=== PATIENT | female | born 1945 | race Caucasian/White ===

== ENCOUNTER 2019-10-28 10:02 | Emergency (ER) | payer MEDICARE ==
--- NOTE | 2019-10-28 10:18 | ER Document Report ---
ED Medical Screen (RME) - General Chief Complaint: Diarrhea Stated Complaint: DIARRHEA Time Seen by Provider: 10/28/19 10:13 Primary Care Provider: MARCY POLLOCK MD [ACTIVE STAFF] - Follow up as needed FÁTIMA MARTÍNEZ MD [ACTIVE STAFF] - Follow up as needed Mode of Arrival: Ambulatory Information source: Patient Notes: 74-year-old female presented to ED for complaint of nausea no vomiting and diarrhea off and on for several months worse in the last week. She states she is having 3-4 stools a day for the last week. States when she was a teenager she had ulcers. She states they did 3 colonoscopies 3 years ago and 3 endoscopies due to ulcers. She states she moved here from [place] and August and she has not got a doctor in this area yet. She states she has been taking her medicines but she needs a doctor so that she can get refills on all of her medicines. She states the only medicine she is out of at this time is her sleeping medicine. States she does have mucus in her stools at this time but no blood. She states she has not been on antibiotics for any reason in over a year. I have greeted and performed a rapid initial assessment of this patient. A comprehensive ED assessment and evaluation of the patient, analysis of test results and completion of medical decision making process will be conducted by an additional ED providers. - Related Data Allergies/Adverse Reactions: codeine Adverse Reaction (Verified 10/28/19 10:14) Nausea Physical Exam - Vital signs Vitals: Temp Pulse Resp BP Pulse Ox 97.9 F 75 16 104/46 L 94 10/28/19 10:07 10/28/19 10:07 10/28/19 10:07 10/28/19 10:07 10/28/19 10:07 Course - Vital Signs Vital signs: Temp Pulse Resp BP Pulse Ox 98.2 F 70 20 136/62 H 95 10/28/19 14:27 10/28/19 14:27 10/28/19 14:27 10/28/19 14:27 10/28/19 14:27 - Laboratory Result Diagrams: 10/28/19 11:00 10/28/19 11:00 Laboratory results interpreted by me: 10/28/19 10/28/19 11:00 11:00 WBC 3.8 L RDW 14.9 H [place] % (Auto) 16.5 H Potassium 3.4 L Chloride 110 H Creatinine 1.38 H Est GFR ( Amer) 45 L Est GFR (MDRD) Non-Af 37 L Total Protein 6.2 L Lipase 17.5 L Doctor's Discharge - Discharge Clinical Impression: Diarrhea Condition: Stable Disposition: HOME, SELF-CARE Instructions: Diarrhea, Nonspecific ([facility]) Additional Instructions: Maintain adequate fluid and food intake Increase fiber/water in diet tylenol if needed Monitor for any worsening symptoms Make sure you are staying hydrated enough to urinate and have normal BM's Recheck with your PCM in 3-5 days Schedule a consult with gastroenterology this week. Return to the ED with any worsening symptoms and/or development of fever, headache, chest pain, palpitations, syncope, shortness of breath, trouble breathing, abdominal pain, n/v/d, blood in stool/urine, weakness, or other worsening symptoms that are concerning to you. Prescriptions: Psyllium Husk 1 gm MC DAILY #3 powder Forms: Follow-Up Laboratory Testing Referrals: MARCY POLLOCK MD [ACTIVE STAFF] - Follow up as needed FÁTIMA MARTÍNEZ MD [ACTIVE STAFF] - Follow up as needed
[2019-10-28] MEDS ORDERED: ONDANSETRON 4 MG TAB.RAPDIS PO ONE (10:19)
[2019-10-28] MEDS ORDERED: NORMAL SALINE 1000 ML 1,000 ML IV ONE ×2 (10:20→12:46)
[2019-10-28 11:38] LABS: ABSOLUTE BASOPHILS # (AUTO) 0.1 10^3/uL (0.0-0.2); ABSOLUTE EOSINOPHILS # (AUTO) 0.2 10^3/uL (0.0-0.6); ABSOLUTE LYMPHOCYTES (AUTO) 1.2 10^3/uL (0.5-4.7); ABSOLUTE MONOCYTES (AUTO) 0.6 10^3/uL (0.1-1.4); ABSOLUTE NEUT (AUTO) 1.7 10^3/uL (1.7-8.2); BASOPHILS % (AUTO) 1.5 % (0-2); EOSINOPHILS % (AUTO) 5.4 % (0-6); HEMATOCRIT 38.8 % (36.0-47.0); HEMOGLOBIN 12.7 g/dL (12.0-15.5); LYMPHOCYTES % (AUTO) 31.5 % (13-45); MEAN CORPUSCULAR HEMOGLOBIN 29.7 pg (27.0-33.4); MEAN CORPUSCULAR HGB CONC 32.7 g/dL (32.0-36.0); MEAN CORPUSCULAR VOLUME 91 fl (80-97); MONOCYTES % (AUTO) 16.5 % (3-13); PLATELET COUNT 208 10^3/uL (150-450); RED BLOOD COUNT 4.27 10^6/uL (3.72-5.28); RED CELL DISTRIBUTION WIDTH 14.9 % (11.5-14.0); SEGMENTED NEUTROPHILS % (AUTO) 45.1 % (42-78); TOTAL CELLS COUNTED % (AUTO) 100 %; WHITE BLOOD COUNT 3.8 10^3/uL (4.0-10.5)
[2019-10-28 11:56] LABS: ALBUMIN 3.7 g/dL (3.5-5.0); ALKALINE PHOSPHATASE 92 U/L (38-126); ANION GAP 10 (5-19); ASPARTATE AMINO TRANSFERASE 17 U/L (14-36); BILIRUBIN,DIRECT 0.1 mg/dL (0.0-0.4); BILIRUBIN,TOTAL 0.6 mg/dL (0.2-1.3); BLOOD UREA NITROGEN 19 mg/dL (7-20); CALCIUM 9.2 mg/dL (8.4-10.2); CARBON DIOXIDE 22 mmol/L (22-30); CHLORIDE 110 mmol/L (98-107); GLUCOSE 93 mg/dL (75-110); POTASSIUM 3.4 mmol/L (3.6-5.0); TOTAL PROTEIN 6.2 g/dL (6.3-8.2)
--- NOTE | 2019-10-28 12:42 | ER Document Report ---
ED General - General Chief Complaint: Nausea Stated Complaint: DIARRHEA Time Seen by Provider: 10/28/19 10:13 Primary Care Provider: MARCY POLLOCK MD [ACTIVE STAFF] - Follow up as needed FÁTIMA MARTÍNEZ MD [ACTIVE STAFF] - Follow up as needed Mode of Arrival: Ambulatory TRAVEL OUTSIDE OF THE [place] IN LAST 30 DAYS: No - HPI Notes: Patient is a 74-year-old female with a history of pacemaker placement as well as chronic recurrent diarrhea who presents complaining of having increased episodes of diarrhea over the past week. Patient states that she has been having 3-4 stools in the day that have been loose and watery. Patient has not noticed any black or tarry stools. She has been able to eat and drink without difficulty otherwise. She is urinating normally. She has a history of appendectomy, but no other surgeries to her abdomen. She has had previous Colonoscopies and endoscopies in the past. She moved here in August and has not established with any providers yet. She has been trying [id number] meds with minimal relief. Her last episode of diarrhea was 430 this morning. No recent antibiotic use, travel to any country, or consuming raw foods. No new medications. Denies any headache, fever, neck pain, URI, sore throat, chest pain, palpitations, syncope, cough, shortness of breath, wheeze, dyspnea, abdominal pain, nausea/vomiting, urinary retention, dysuria, hematuria, or rash. - Related Data Allergies/Adverse Reactions: codeine Adverse Reaction (Verified 10/28/19 10:14) Nausea Past Medical History - General Information source: Patient - Social History Smoking Status: Former Smoker Family History: Reviewed & Not Pertinent Patient has suicidal ideation: No Patient has homicidal ideation: No Past Surgical History: Reports: Hx Appendectomy, Hx Cardiac Surgery - PACEMAKER, Hx Gynecologic Surgery - HYSTERECTOMY, Hx Orthopedic Surgery - BILAT KNEE REPLACEMENT, LEFT SHOULDER Review of Systems - Review of Systems -: Yes All other systems reviewed and negative Physical Exam - Vital signs Vitals: Temp Pulse Resp BP Pulse Ox 97.9 F 75 16 104/46 L 94 10/28/19 10:07 10/28/19 10:07 10/28/19 10:07 10/28/19 10:07 10/28/19 10:07 - Notes Notes: PHYSICAL EXAMINATION: GENERAL: Well-appearing, well-nourished and in no acute distress. HEAD: Atraumatic, normocephalic. EYES: Pupils equal round and reactive to light, extraocular movements intact, sclera anicteric, conjunctiva are normal. ENT: Nares patent and without discharge. oropharynx clear without exudates. No tonsilar hypertrophy or erythema. Moist mucous membranes. NECK: Normal range of motion, supple without lymphadenopathy LUNGS: Breath sounds clear to auscultation bilaterally and equal. No wheezes rales or rhonchi. HEART: Regular rate and rhythm without murmurs, rubs, gallops. ABDOMEN: Soft, nontender, nondistended abdomen. No guarding, no rebound. Normal bowel sounds present. No CVA tenderness bilaterally. Musculoskeletal: FROM to passive/active. Strength 5+/5. Extremities: No cyanosis, clubbing, or edema b/l. Peripheral pulses 2+. Capillary refill less than 3 seconds. NEUROLOGICAL: Cranial nerves grossly intact. Normal speech, normal gait. PSYCH: Normal mood, normal affect. SKIN: Warm, Dry, normal turgor, no rashes or lesions noted. Course - Re-evaluation Re-evalutation: 10/28/19 Patient is an afebrile, well-hydrated, 74-year-old female who presents to the ED with nonspecific acute on chronic diarrhea. Vitals are acceptable without any significant tachycardia, tachypnea, or hypoxia. BP 136/62 on discharge. PE is otherwise unremarkable. Abd is soft and non-tender throughout. Labs are acc eptable. Patient is nontoxic-appearing is tolerating p.o. without any difficulties. No other labs or imaging warranted at this time based on H&P. Pt has not had to have a BM throughout her stay and since 0430 today. She cannot provide us with a stool sample at this time. I will give her outpatient lab order. Low suspicion/risk for acute appendicitis, bowel obstruction, acute cholecystitis, acute cholangitis, perforated diverticulitis, incarcerated hernia, pancreatitis, perforated ulcer, peritonitis, sepsis, pelvic inflammatory disease, ectopic , tubo-ovarian abscess, ovarian torsion, or other systemic emergent condition at this time. Patient is aware that her condition can change from initial presentation and she needs to monitor symptoms closely and seek medical attention if any acute changes. I will send her home with prescription for psyllium husk. Conservative measures otherwise for symptoms. Recheck with your PCM/OBGYN in 3-5 days. Schedule appointment with GI. Return to the ED with any worsening/concerning symptoms otherwise as reviewed in discharge. Patient is in agreement. - Vital Signs Vital signs: Temp Pulse Resp BP Pulse Ox 97.8 F 65 14 123/43 L 96 10/28/19 12:41 10/28/19 12:41 10/28/19 12:41 10/28/19 12:41 10/28/19 12:41 - Laboratory Result Diagrams: 10/28/19 11:00 10/28/19 11:00 Laboratory results interpreted by me: 10/28/19 10/28/19 11:00 11:00 WBC 3.8 L RDW 14.9 H [place] % (Auto) 16.5 H Potassium 3.4 L Chloride 110 H Creatinine 1.38 H Est GFR ( Amer) 45 L Est GFR (MDRD) Non-Af 37 L Total Protein 6.2 L Lipase 17.5 L Discharge - Discharge Clinical Impression: Diarrhea Qualifiers: Diarrhea type: unspecified type Qualified Code(s): R19.7 - Diarrhea, unspecified Condition: Stable Disposition: HOME, SELF-CARE Instructions: Diarrhea, Nonspecific ([facility]) Additional Instructions: Maintain adequate fluid and food intake Increase fiber/water in diet tylenol if needed Monitor for any worsening symptoms Make sure you are staying hydrated enough to urinate and have normal BM's Recheck with your PCM in 3-5 days Schedule a consult with gastroenterology this week. Return to the ED with any worsening symptoms and/or development of fever, headache, chest pain, palpitations, syncope, shortness of breath, trouble breathing, abdominal pain, n/v/d, blood in stool/urine, weakness, or other worsening symptoms that are concerning to you. Prescriptions: Psyllium Husk 1 gm MC DAILY #3 powder Forms: Follow-Up Laboratory Testing Referrals: MARCY POLLOCK MD [ACTIVE STAFF] - Follow up as needed FÁTIMA MARTÍNEZ MD [ACTIVE STAFF] - Follow up as needed
[2019-10-28 14:30] VITALS: BP 136/62
== END 2019-10-28 14:27 | disposition home or self-care (01) ==
LOC: ER 10:02
DX: R19.7 Diarrhea, unspecified (principal); R11.0 Nausea; Z95.0 Presence of cardiac pacemaker; Z88.6 Allergy status to analgesic agent
CPT/HCPCS: 99284; 96360; 96361; 36415; 83690; 85025; 80053; J7030

== ENCOUNTER → 2019-10-29 | Outpatient (CLI) | payer MEDICARE ==
[2019-10-29 15:01] LABS: C DIFFICILE GDH NEGATIVE (NEGATIVE)
== END ==
LOC: LAB 12:02
PROVIDERS: ATTEND Physician Assistant Medical
DX: R19.7 Diarrhea, unspecified (principal)
CPT/HCPCS: 87045; 87205; 87324; 87449; 89055

== ENCOUNTER → 2019-11-09 | Outpatient (CLI) | payer MEDICARE ==
[2019-11-09 13:28] LABS: ABSOLUTE BASOPHILS # (AUTO) 0.1 10^3/uL (0.0-0.2); ABSOLUTE EOSINOPHILS # (AUTO) 0.2 10^3/uL (0.0-0.6); ABSOLUTE LYMPHOCYTES (AUTO) 1.4 10^3/uL (0.5-4.7); ABSOLUTE MONOCYTES (AUTO) 0.7 10^3/uL (0.1-1.4); ABSOLUTE NEUT (AUTO) 2.6 10^3/uL (1.7-8.2); BASOPHILS % (AUTO) 1.2 % (0-2); EOSINOPHILS % (AUTO) 4.2 % (0-6); HEMATOCRIT 38.6 % (36.0-47.0); HEMOGLOBIN 12.8 g/dL (12.0-15.5); LYMPHOCYTES % (AUTO) 27.5 % (13-45); MEAN CORPUSCULAR HEMOGLOBIN 29.8 pg (27.0-33.4); MEAN CORPUSCULAR HGB CONC 33.1 g/dL (32.0-36.0); MEAN CORPUSCULAR VOLUME 90 fl (80-97); MONOCYTES % (AUTO) 15.1 % (3-13); PLATELET COUNT 247 10^3/uL (150-450); RED CELL DISTRIBUTION WIDTH 14.9 % (11.5-14.0); TOTAL CELLS COUNTED % (AUTO) 100 %; WHITE BLOOD COUNT 4.9 10^3/uL (4.0-10.5)
[2019-11-09 13:50] LABS: ANION GAP 12 (5-19); BLOOD UREA NITROGEN 19 mg/dL (7-20); CALCIUM 9.3 mg/dL (8.4-10.2); CARBON DIOXIDE 24 mmol/L (22-30); CHLORIDE 106 mmol/L (98-107); GLUCOSE 108 mg/dL (75-110)
[2019-11-09 15:29] LABS: C-REACTIVE PROTEIN < 5.0 mg/L (<10.0)
[2019-11-09 15:39] LABS: POTASSIUM 2.8 mmol/L (3.6-5.0)
[2019-11-10 03:52] LABS: C DIFFICILE GDH NEGATIVE (NEGATIVE)
== END ==
LOC: LAB 13:07
PROVIDERS: ATTEND Internal Medicine Gastroenterology
DX: R19.7 Diarrhea, unspecified (principal)
CPT/HCPCS: 36415; 80048; 85025; 86140; 87324; 87449